=== PATIENT | male | born 1960 | race Caucasian/White ===

== ENCOUNTER 2017-08-13 16:47 | Observation (INO) | payer BC ==
[2017-08-13] MEDS ORDERED: Lidocaine 2% VISCOUS* 15 ML UDC PO ONE (18:00)
[2017-08-13] MEDS ORDERED: Al Hydrox/Mg Hydrox/Simet LIQ* 30 ML UDC PO ONE (18:00)
--- NOTE | 2017-08-13 18:49 | RAD ---
INDICATION: Chest pain. COMPARISON: Comparison is made with a prior study from March 18, 2012. TECHNIQUE: A portable view of the chest was obtained. FINDINGS: Cardiac and mediastinal contours appear to be within normal limits. The lungs are clear. No pleural effusion is seen. IMPRESSION: NO EVIDENCE FOR ACUTE DISEASE.
[2017-08-13] MEDS ORDERED: Aspirin Low Dose CHEW TAB* 81 MG PO ONE (19:10)
--- NOTE | 2017-08-13 19:35 | ED ---
HPI Chest Pain - HPI Summary HPI Summary: 56-year-old male presents with chest pain since last night. He states it is a burning in his chest. He states he has had this pain before. He states normal his symptoms resolve themselves with time but it has been constant. He states that the pain does not change with exertion. He states he still had the chest pain when he woke up this morning. He states throughout the day chest pain moved up to his neck. He states that this neck part of his chest pain has resolved. Denies any shortness of breath. He states his chest pain is better when he is lying down. Denies any change with food. He has history of GERD. He states this feels similar to his GERD pain but normal it does not persist this long. He denies any abdominal pain or nausea. Denies any diaphoresis. He denies any radiation into his arm. He had a stress test 4 months ago. He states he had a catheterization done 4 years ago had 20% blockage in one of his vessels but the doctor told him it was fine. He has a history of hypertension. He is not diabetic. He has no family cardiac history. He is a smoker. He did not take any aspirin. - History of Current Complaint Chief Complaint: EDChestPainROMI Time Seen by Provider: 08/13/17 18:55 Pain Intensity: 5 - Allergy/Home Medications Allergies/Adverse Reactions: Allergies Allergy/AdvReac Type Severity Reaction Status Date / Time No Known Allergies Allergy Verified 03/02/13 12:52 PMH/Surg Hx/FS Hx/Imm Hx Endocrine/Hematology History: Denies: Hx Diabetes, Hx Systemic Lupus Erythematosus Cardiovascular History: Reports: Hx Hypertension Denies: Hx Congestive Heart Failure Respiratory History: Reports: Other Respiratory Problems/Disorders - sleep apnia GI History: Reports: Other GI Disorders - acie reflux History: Denies: Hx Dialysis, Hx Renal Disease Musculoskeletal History: Denies: Hx Rheumatoid Arthritis - Cancer History Hx Chemotherapy: No - Surgical History Surgery Procedure, Year, and Place: lt shoulder rotator cuff- 1999, rt elbow- 1979 , rt knee-2004, [id number], rt carple tunnel Infectious Disease History: No Infectious Disease History: Denies: Traveled Outside the [place] in Last 30 Days - Family History Known Family History: Negative: Cardiac Disease - Social History Alcohol Use: None Substance Use Type: Reports: None Smoking Status (MU): Unknown if Ever Smoked Review of Systems Negative: Fever Positive: Chest Pain Negative: Shortness Of Breath, Cough All Other Systems Reviewed And Are Negative: Yes Physical Exam Triage Information Reviewed: Yes Vital Signs On Initial Exam: Initial Vitals Temp Pulse Resp BP Pulse Ox 97.9 F 57 20 192/110 99 08/13/17 16:48 08/13/17 16:48 08/13/17 16:48 08/13/17 16:48 08/13/17 16:48 Vital Signs Reviewed: Yes Appearance: Positive: Well-Appearing Skin: Positive: Warm, Dry Head/Face: Positive: Normal Head/Face Inspection Eyes: Positive: Normal, EOMI, NATAN, Conjunctiva Clear ENT: Positive: Normal ENT inspection, Pharynx normal, TMs normal Respiratory/Lung Sounds: Positive: Clear to Auscultation, Breath Sounds Present , Other - nonreproducible chest pain Cardiovascular: Positive: Normal, RRR Abdomen Description: Positive: Nontender, Soft Bowel Sounds: Positive: Present Musculoskeletal: Positive: Normal Neurological: Positive: Normal Psychiatric: Positive: Normal Diagnostics - Vital Signs Vital Signs Temp Pulse Resp BP Pulse Ox 08/13/17 16:48 97.9 F 57 20 192/110 99 - Laboratory Lab Results: Lab Results 08/13/17 08/13/17 Range/Units 18:28 18:28 Total Creatine Kinase 150 (10-223) U/L CK-MB (CK-2) 9.1 H (0.6-6.3) ng/mL B-Natriuretic Peptide 93 ( - 100) pg/mL TSH Pending Result Diagrams: 08/13/17 19:30 08/13/17 19:30 Lab Statement: Any lab studies that have been ordered have been reviewed, and results considered in the medical decision making process. - Radiology chest Xray Interpretation: No Acute Changes Radiology Interpretation Completed By: Radiologist - EKG No standard instances EKG Rhythm: Sinus Bradycardia ST Segment: Normal EKG Interpretation: sinus bradycardia similiar to previous EKG Comparison: No Significant Change Re-Evaluation - Re-Evaluation First Eval Re-Evaluation Time: 19:36 Change: Improved Comment: feeling better after GI cocktail, but chest pain is still persisting in substernal area Chest Pain Course/Dx - Course Course Of Treatment: 56-year-old male presents with sub sternal chest pain since last night. He states it is a burning in his chest. He states the pain started last night and has progressed. He states the pain started to radiate into his jaw. He denies any SOB. He denies any nausea or abdominal pain. He has HTN, obseity, smoker. no family history of cardiac disease though. on exam lungs CTA. heart RRR. nonreproducible chest pain. nontender abdomen. chest xray normal. ekg sinus bradycardia similiar to previous. troponin neg. ckmb elevated. cbc normal. gave ASA and no improvement. after GI cocktail feeling a little better but chest pain persists. dr santos examined the patient and looks at stress test and showed possible filling defect and suggests consults hospitalist. dr bush agrees to admit. - Chest Pain Differential Diagnosis/HQI/PQRI: Acute SD, Angina, Chest Wall, GI Disease - Diagnoses Provider Diagnoses: Chest pain Discharge - Discharge Plan Condition: Stable Disposition: ADMITTED TO [facility]
[2017-08-13 19:36] LABS: ABS Basophils 0.1 10^3/ul (0-0.2); ABS Eosinophils 0.1 10^3/ul (0-0.6); ABS Lymphocytes 3.6 10^3/ul (1.0-4.8); ABS Monocytes 0.7 10^3/ul (0-0.8); ABS Neutrophils 5.8 10^3/ul (1.5-7.7); ABS Nucleated RBC 0 10^3/ul; Eosinophil % 0.7 % (0-6); Hematocrit 46 % (42-52); Lymphocyte % 34.8 % (25-47); Mean Corpuscular HGB Conc 35 g/dl (31-36); Mean Corpuscular Hemoglobin 31 pg (27-31); Mean Corpuscular Volume 89 fL (80-94); Mean Platelet Volume 8 um3 (7.4-10.4); Nucleated Red Blood Cells % 0.1; Platelet Count 258 10^3/ul (150-450); Red Blood Count 5.15 10^6/ul (4.0-5.4); Red Cell Distribution Width 14 % (10.5-15); White Blood Count 10.2 10^3/ul (3.5-10.8)
[2017-08-13 19:50] LABS: Urine Appearance Clear; Urine Blood 2+ (Negative); Urine Color Straw; Urine Ketones Negative (Negative); Urine Protein Negative (Negative); Urine Specific Gravity 1.011 (1.010-1.030); Urine Urobilinogen Negative (Negative)
[2017-08-13] MEDS ORDERED: Ondansetron INJ* 2 MG/ML VIAL IV PRN (23:33)
[2017-08-13] MEDS ORDERED: Acetaminophen TAB* 325 MG PO PRN (23:33)
[2017-08-13] MEDS ORDERED: Mouth Piece, Nicotine* 1 EACH CARTRIDGE INH PRN (23:43)
[2017-08-13] MEDS ORDERED: Nicotine Inhaler* 10 MG AMP INH PRN (23:43)
[2017-08-14] MEDS ORDERED: Mouth Piece, Nicotine* 1 EACH CARTRIDGE ONE (00:27)
--- NOTE | 2017-08-14 00:59 | HP ---
CC: Dr. Smith * HISTORY AND PHYSICAL: DATE OF ADMISSION: 08/13/17 TIME OF EVALUATION: 2330. PRIMARY CARE PHYSICIAN: Dr. Smith. CHIEF COMPLAINT: Chest pain. HISTORY OF PRESENT ILLNESS: This is a 56-year-old male with a past medical history of GERD, obstructive sleep apnea and hypertension, who presented to the emergency room with having chest pain. The patient states yesterday while driving he developed substernal chest pain that resolved. 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 He did not improve while he was driving home, so he decided to come to the emergency room for further evaluation. No shortness of breath. No nausea. No diaphoresis. No changes in his weight. He stated in the last week, he is trying to eat healthier lifestyle. He has been on a diet, trying to lose weight. He has noted increase in burping and indigestion. He does not appear to be on any reflux medications. Denies any change in his weight or lower extremity swelling. He states he had a stress test back in January and on our records, it says he did not complete the full stress test. He states he did and was told that was unremarkable. He also states he had a cardiac cath several years ago that showed 20% blockages. Otherwise, review of systems is negative. In the emergency room, the patient had labs, imaging. He was given a full aspirin and Maalox and was referred to the hospitalist service for further evaluation. The patient states he still has subtle substernal chest pain. PAST MEDICAL HISTORY: 1. Hypertension. 2. GERD. 3. Obstructive sleep apnea, on CPAP. 4. Nonobstructive coronary disease. PAST SURGICAL HISTORY: 1. Rotator cuff surgery in 1999. 2. Right elbow surgery in 1979. 3. Right knee surgery in 2004. 4. Right carpal tunnel surgery. 5. History of lipoma removal. MEDICATIONS: 1. Lisinopril/hydrochlorothiazide 20/25 mg p.o. in the morning. 2. Metoprolol, unclear on the dose in the morning. 3. Cialis as needed. The patient states he is not on aspirin, but he supposed to be. 4. Vitamin D. 5. Vitamin B12. ALLERGIES: No known drug allergies. FAMILY HISTORY: No cardiac history. SOCIAL HISTORY: The patient lives at home with his who is his healthcare proxy. He is a smoker. He smokes up to 3 packs per week. No alcohol or illicit drug use. 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 CODE STATUS: Full code. REVIEW OF SYSTEMS: A 14-point review of systems as mentioned in the HPI, otherwise negative. PHYSICAL EXAMINATION GENERAL: No acute distress, resting comfortably. VITAL SIGNS: Temp is 97.9, pulse rate is 58, respiratory rate 21, oxygen saturation 96% on room air, blood pressure 156/80. HEENT: Head: Normocephalic. Pupils are equal and reactive, anicteric. Oropharynx: Mucous membranes moist. NECK: Supple. No lymphadenopathy. RESPIRATORY: Diminished breath sounds. Faint rhonchi bilaterally. No increased work of breathing. CARDIAC: Regular rate and rhythm. Soft systolic murmur heard throughout. ABDOMEN: Soft, nontender, nondistended. EXTREMITIES: No clubbing, cyanosis, or edema. +1 DPs. NEUROLOGIC: Alert, awake, and oriented x3. No focal neurologic deficits. LABORATORY DATA: White count 10.2, hemoglobin 16, hematocrit 46, platelets 258. Sodium 137, potassium 3.9, chloride 103, bicarb 29, BUN 18, creatinine 0.69 , glucose 102. Troponin is 0.01 x2. BNP is 93. TSH is 2.79. RADIOGRAPHIC DATA: Chest x-ray shows no evidence for acute disease. EKG shows sinus bradycardia with a prolonged NJ interval. ASSESSMENT: This is a 56-year-old male with a past medical history of gastroesophageal reflux disease, obstructive sleep apnea, hypertension, who presents to the emergency room with 2 days of worsening chest pain. 1. Chest pain. Assessment: Seems to be slightly exertional in nature, although initially started nonexertional, increase in indigestion, but has been eating healthier and could be gastroesophageal reflux disease related. It does not appear that he is on his gastroesophageal reflux disease medications, although he is not sure of his entire medication list. Could be musculoskeletal as he does a lot of heavy lifting as well, but he does have some risk factors, not unreasonable to admit him for rule out. He did have a stress test back in January, but it does not appear that he did the second portion of the test and then there was a question of a filling defect. Plan: We will admit him to observation CDU unit for rule out trend his troponin , check a lipid panel. Continue him on a baby aspirin and I order for a nuclear stress test in the morning. 2. Chronic medical problems: Hypertension: Continue his lisinopril and we will do a low-dose metoprolol as he is not sure of his dose. Hold his hydrochlorothiazide in the setting of being n.p.o. 3. Gastroesophageal reflux disease. The patient is not on any medications. We will place him on H2 rajwinder for now. 4. Tobacco use. Place him on nicotine inhaler. 5. Obstructive sleep apnea. We will place him on a CPAP. 6. FEN. Keep him n.p.o. 7. DVT prophylaxis. The patient scores moderate risk. Place him on heparin subcu t.i.d. 8. Code status. Full code. PATIENT TIME: Greater than 50 minutes spent doing the history and physical, more than half the time spent in direct patient contact. [id number]/[facility] #: [id number] VITALIY
[2017-08-14] MEDS: Al Hydrox/Mg Hydrox/Simet LIQ* 30 ML UDC PO PRN ×2 (02:09→20:46)
[2017-08-14] MEDS: Heparin VIAL(*) 5000 UNITS/ML VIAL (FIVE THOUSAND) SUBCUT SCH ×3 (06:00→22:12)
--- NOTE | 2017-08-14 08:18 | PN ---
Hospitalist Progress Note Date of Service: 08/14/17 Called by RN for chest pain. I evaluated Mr. Brito; he developed substernal chest pain after he walked back to his bed from the bathroom. A stat ekg is unchanged (nsr, normal axis, normal intervals, no st/t changes), but he has a significant BP differential between his arms. Check stat CTA to rule out dissection. If negative, will proceed with stress test.
[2017-08-14] MEDS: Aspirin EC Low Dose* 81 MG TAB.EC PO SCH (08:26)
[2017-08-14] MEDS: Metoprolol Succinate XL TAB* 25 MG PO SCH (08:29)
[2017-08-14] MEDS: Famotidine TAB* 20 MG PO SCH (08:29)
[2017-08-14] MEDS: Lisinopril TAB* 10 MG PO SCH (08:29)
[2017-08-14] MEDS: Acyclovir* 400 MG TAB PO SCH ×2 (08:29→20:44)
[2017-08-14] MEDS ORDERED: Iohexol 350* (CONTRAST) 500 ML MDV IV SCH (08:33)
--- NOTE | 2017-08-14 10:02 | RAD ---
INDICATION: Hypertension. Evaluate for aortic dissection. COMPARISON: Chest x-ray same date; CT chest March 02, 2013 TECHNIQUE: Axial source images were obtained from the thoracic inlet to the hemidiaphragms following administration of [address] angiographic technique was utilized. Coronal and sagittal reconstructed images were acquired. CHEST FINDINGS: Neck/thyroid: The visualized neck to include the thyroid appear normal. Chest wall: There are no acute abnormalities of the bony thorax or chest wall. There is no supraclavicular, infraclavicular, or axillary lymphadenopathy. Lungs : There are no pulmonary parenchymal masses or infiltrates. The pulmonary interstitium appears normal. There are no endobronchial lesions. Cardiomediastinal structures: There is no CT evidence of acute pulmonary embolic disease. The heart is normal in size. There is no pericardial effusion. There is no evidence of aortic aneurysm or dissection. There are no specific CT and radiographic abnormalities of the proximal great vessels arising from the arch. There is no mediastinal or hilar adenopathy. The esophagus appears normal. Pleura : There are no pleural-based masses or effusions. There is subpleural fat appearing unchanged. Other: There is hepatomegaly with hepatic steatosis. IMPRESSION: NO CT EVIDENCE OF THORACIC AORTIC ANEURYSM OR DISSECTION. LUNGS CLEAR.
--- NOTE | 2017-08-14 17:13 | PN ---
Subjective Date of Service: 08/14/17 Interval History: Experienced chest pain again this morning after walking to the bathroom. Resolved at rest. An ekg at that time showed no ischemia. No SOB, nausea, diaphoresis, +palpitations. Family History: Unchanged from Admission Social History: Unchanged from Admission Past Medical History: Unchanged from Admission Objective Active Medications: Acetaminophen (Tylenol Tab*) 650 mg PO Q4H PRN PRN Reason: FEVER/PAIN Acyclovir (Zovirax Tab*) 800 mg PO Q12HR [facility] Last Admin: 08/14/17 08:29 Dose: 800 mg Al Hydrox/Mg Hydrox/Simethicone (Maalox Plus*) 30 ml PO Q6H PRN PRN Reason: INDIGESTION Last Admin: 08/14/17 02:09 Dose: 30 ml Aspirin (Aspirin Ec Low Dose*) 81 mg PO DAILY [facility] Last Admin: 08/14/17 08:26 Dose: Not Given Device (Nicotine Mouth Piece*) 1 each INH ONCE ONE Stop: 08/14/17 23:44 Famotidine (Pepcid Tab*) 20 mg PO DAILY [facility] Last Admin: 08/14/17 08:29 Dose: 20 mg Heparin Sodium (Porcine) (Heparin Vial(*)) 5,000 units SUBCUT Q8HR [facility] Last Admin: 08/14/17 14:21 Dose: 5,000 units Iohexol (Omnipaque 350 (Contrast)-) 100 ml IV ONCE [facility] Stop: 08/16/17 08:32 Last Admin: 08/14/17 09:13 Dose: 100 ml Lisinopril (Prinivil Tab*) 20 mg PO DAILY [facility] Last Admin: 08/14/17 08:29 Dose: 20 mg Metoprolol Succinate (Toprol Xl Tab*) 25 mg PO DAILY [facility] Last Admin: 08/14/17 08:29 Dose: 25 mg Nicotine (Nicotine Inhaler*) 10 mg INH Q2H PRN PRN Reason: CRAVING Ondansetron HCl (Zofran Inj*) 4 mg IV Q4H PRN PRN Reason: NAUSEA/VOMITING Vital Signs - 8 hr 08/14/17 08/14/17 10:54 15:26 Temperature 97.8 F 97.2 F Pulse Rate 60 65 Respiratory 20 18 Rate Blood Pressure 164/90 149/77 (mmHg) O2 Sat by Pulse 96 97 Oximetry Oxygen Devices in Use Now: None Appearance: obese, with facial plethora Eyes: No Scleral Icterus Ears/Nose/Mouth/Throat: NL Teeth, Lips, Gums Neck: NL Appearance and Movements; NL JVP Respiratory: Symmetrical Chest Expansion and Respiratory Effort, Clear to Auscultation Cardiovascular: NL Sounds; No Murmurs; No JVD, RRR Abdominal: NL Sounds; No Tenderness; No Distention Lymphatic: No Cervical Adenopathy Extremities: No Edema Skin: No Rash or Ulcers Result Diagrams: 08/13/17 19:30 08/13/17 19:30 Additional Lab and Data: Lab Results 08/13/17 08/13/17 Range/Units 18:28 18:28 Total Creatine Kinase 150 (10-223) U/L CK-MB (CK-2) 9.1 H (0.6-6.3) ng/mL B-Natriuretic Peptide 93 ( - 100) pg/mL TSH Pending Assess/Plan/Problems-Billing Assessment: 56 yo M with history of HTN admitted with chest pain - Patient Problems (1) Chest pain Current Visit: Yes Status: Acute Code(s): R07.9 - CHEST PAIN, UNSPECIFIED SNOMED Code(s): 93892829 Comment: with some typical and some atypical features. ACS ruled out with 3x normal troponin and normal ekg. 1st portion of stress test done today; will await second portion tomorrow. (2) HTN (hypertension) Current Visit: Yes Status: Acute Code(s): I10 - ESSENTIAL (PRIMARY) HYPERTENSION SNOMED Code(s): 13690085 Comment: poorly controlled on lisinopril and metoprolol; will add back hctz (3) MATEO (obstructive sleep apnea) Current Visit: Yes Status: Acute Code(s): G47.33 - OBSTRUCTIVE SLEEP APNEA ( ADULT) (PEDIATRIC) SNOMED Code(s): 49078557 Comment: continue cpap at night
[2017-08-14] MEDS ORDERED: Mouth Piece, Nicotine* 1 EACH CARTRIDGE INH ONE (23:43)
[2017-08-15] MEDS: Heparin VIAL(*) 5000 UNITS/ML VIAL (FIVE THOUSAND) SUBCUT SCH (05:21)
[2017-08-15] MEDS ORDERED: Hydrochlorothiazide TAB* 25 MG PO SCH (09:00)
[2017-08-15] MEDS ORDERED: Regadenoson* 0.4 MG/5 ML SYRINGE ONE (10:42)
[2017-08-15 11:59] VITALS: BP 146/84
--- NOTE | 2017-08-15 12:36 | RAD ---
HISTORY: Chest pain, hypertension, obesity COMPARISONS: January 29, 2017, February 15, 2011 TECHNIQUE: A 2 day stress/rest myocardial perfusion study was performed, with pharmacologic stress. The stress portion was monitored by Dr. Leslie. Gated SPECT imaging was performed, without CT-based attenuation correction secondary to patient claustrophobia DOSE: Stress: Technetium 99m tetrofosmin, 25.7 millicuries, injected at 10:10 AM on August 15, 2017 Rest: Technetium 99m tetrofosmin, 25.2 millicuries, injected at 12:30 PM on August 14, 2017 Pharmacologic agent: Lexiscan FINDINGS: CARDIAC MONITORING: No new ST changes with stress EF: 67%, 61% with rest TID: 0.4 MOTION: Normal motion, with normal wall thickening. PERFUSION: There is a small reversible defect of the anterior wall. The inferior wall defect on the polar map is felt to be artifactual. OTHER: None IMPRESSION: SMALL REVERSIBLE DEFECT IN THE ANTERIOR WALL CONSISTENT WITH ISCHEMIA. ASSESSMENT: LOW RISK. Based on imaging criteria from ACC/AHA 2002. Guideline Update for the Management of Patient's with Chronic Stable Angina, table 23. Noninvasive Risk Stratification. CPT II Codes: 3570F
[2017-08-15] MEDS: Acyclovir* 400 MG TAB PO SCH (12:51)
[2017-08-15] MEDS: Aspirin EC Low Dose* 81 MG TAB.EC PO SCH (12:51)
[2017-08-15] MEDS: Famotidine TAB* 20 MG PO SCH (12:52)
[2017-08-15] MEDS: Metoprolol Succinate XL TAB* 25 MG PO SCH (12:52)
[2017-08-15] MEDS: Lisinopril TAB* 10 MG PO SCH (12:52)
== END 2017-08-15 14:58 | disposition home or self-care (01) ==
LOC: ED 16:47 → MEDTELE 23:33
PROVIDERS: ADMIT Pediatrics; ATTEND Internal Medicine
DX: R07.9 Chest pain, unspecified (principal); F17.210 Nicotine dependence, cigarettes, uncomplicated; Z86.79 Personal history of other diseases of the circulatory system; I10 Essential (primary) hypertension; K21.9 Gastro-esophageal reflux disease without esophagitis; G47.33 Obstructive sleep apnea (adult) (pediatric)
CPT/HCPCS: 36415; 71045; 71275; 78452; 80053; 80061; 81003; 81015; 82550; 82553; 83605; 83880; 84443; 84484; 85025; 85730; 93005; 93017; 94660; 96374; 99284; A9270-GY; A9502; G0378; J1644; J2785; Q9967

== ENCOUNTER 2018-07-22 13:44 | Observation (INO) | payer BC ==
[2018-07-22] MEDS ORDERED: Lidocaine 2% VISCOUS* 15 ML UDC PO ONE (14:14)
[2018-07-22] MEDS ORDERED: Al Hydrox/Mg Hydrox/Simet LIQ* 30 ML UDC PO ONE (14:14)
--- NOTE | 2018-07-22 14:32 | ED ---
HPI Chest Pain - HPI Summary HPI Summary: This pt is a 57 y/o male presenting to [facility] via EMS for intermittent chest pain today. Pt reports his first episode of chest pain occurred after he had ambulated. He describes burning sensation in his mid sternum that radiated down both elbows and up to his left sided jaw. Pt states this felt like heart burn as he does have hx of this. Denies feeling sour taste in her mouth. Pt notes he sat down, drank water and then it spontaneously resolved. Pt ate a roast beef sandwich after this first episode. He then was going to his appointment with Dr. Leslie, ornament stitcher, today and as he walked into the elevator pt experienced a second episode of chest pain. Currently chest pain has resolved. Denies fever, SOB, nausea, vomiting, headache. His last stress test was in February [address] Leslie. PMHx includes GERD. Pt did take his medications today. - History of Current Complaint Hx Obtained From: Patient Onset/Duration: Started Hours Ago, Resolved Timing: Intermittent, Lasting Minutes Initial Severity: Moderate Current Severity: None Pain Intensity: 0 Pain Scale Used: 0-10 Numeric Chest Pain Location: Mid Sternal Chest Pain Radiates: Yes Chest Pain Radiates To:: Arm - down both arms, Jaw - left Character: Burning Aggravating Factor(s): Nothing Alleviating Factor(s): Spontaneous Resolution Associated Signs and Symptoms: Positive: Chest Pain. Negative: Shortness of Breath, Fever, Chills, Nausea, Vomiting Related History: Similar Episode/Dx as: - heart burn - Additional Pertinent History Primary Care Physician: [id number] - Allergy/Home Medications Allergies/Adverse Reactions: Allergies Allergy/AdvReac Type Severity Reaction Status Date / Time No Known Allergies Allergy Verified 07/22/18 14:16 Home Medications: Home Medications Aspirin EC TAB* [Ecotrin EC Low Dose 81 MG*] 81 mg PO DAILY 07/22/18 [History Confirmed 07/22/18] Esomeprazole(NF) [NexIUM(NF)] 40 mg PO BID 07/22/18 [History Confirmed 07/22/18] Lisinopril/HCTZ 20/25(NF) [Zestoretic 20/25(NF)] 1 tab PO BID 07/22/18 [History Confirmed 07/22/18] Metoprolol Tartrate TAB* [Lopressor TAB*] 50 mg PO BID 07/22/18 [History Confirmed 07/22/18] PMH/Surg Hx/FS Hx/Imm Hx Endocrine/Hematology History: Denies: Hx Diabetes, Hx Systemic Lupus Erythematosus Cardiovascular History: Reports: Hx Angina, Hx Coronary Artery Disease, Hx Hypertension Denies: Hx Congestive Heart Failure, Hx Hypercholesterolemia, Hx Myocardial Infarction, Hx Valvular Heart Disease Respiratory History: Reports: Hx Sleep Apnea - CPAP, Other Respiratory Problems/ Disorders - sleep apnia Denies: Hx Asthma, Hx Chronic Obstructive Pulmonary Disease (COPD) GI History: Reports: Hx Gastroesophageal Reflux Disease, Other GI Disorders - acie reflux History: Denies: Hx Dialysis, Hx Renal Disease Musculoskeletal History: Reports: Other Musculoskeletal History - many surgeries Denies: Hx Rheumatoid Arthritis Sensory History: Reports: Hx Hearing Aid - left at home Denies: Hx Contacts or Glasses Opthamlomology History: Denies: Hx Contacts or Glasses - Cancer History Hx Chemotherapy: No - Surgical History Surgery Procedure, Year, and Place: lt shoulder rotator cuff- 1999, rt elbow- 1979 , rt knee-2004, left knee, spinal [id number], rt carpal tunnel Infectious Disease History: No Infectious Disease History: Reports: Hx Shingles Denies: History Other Infectious Disease, Traveled Outside the [place] in Last 30 Days - Family History Known Family History: Negative: Cardiac Disease - Social History Alcohol Use: Weekly Alcohol Amount: 2 glasses whiskey Substance Use Type: Reports: None Smoking Status (MU): Light Every Day Tobacco Smoker Type: Cigarettes Amount Used/How Often: 3 packs per week down about 2 pack a week Have You Smoked in the Last Year: Yes Review of Systems Negative: Fever, Chills Negative: Other - NEG: sour taste in mouth Positive: Chest Pain Negative: Shortness Of Breath Negative: Vomiting, Nausea Negative: Headache All Other Systems Reviewed And Are Negative: Yes Physical Exam - Summary Physical Exam Summary: VITAL SIGNS: Reviewed. GENERAL: Patient is a well-developed and nourished male who is lying comfortable in the stretcher. Patient is not in any acute respiratory distress. HEAD AND FACE: No signs of trauma. No ecchymosis, hematomas or skull depressions. No sinus tenderness. EYES: PERRLA, EOMI x 2, No injected conjunctiva, no nystagmus. EARS: Hearing grossly intact. Ear canals and tympanic membranes are within normal limits. MOUTH: Oropharynx within normal limits. NECK: Supple, trachea is midline, no adenopathy, no JVD, no carotid bruit, no c- spine tenderness, neck with full ROM. CHEST: Symmetric, no tenderness at palpation LUNGS: Clear to auscultation bilaterally. No wheezing or crackles. CVS: Regular rate and rhythm, S1 and S2 present, no murmurs or gallops appreciated. ABDOMEN: Soft, non-tender. No signs of distention. No rebound, no guarding, and no masses palpated. Bowel sounds are normal. EXTREMITIES: FROM in all major joints, no edema, no cyanosis or clubbing. NEURO: Alert and oriented x 3. No acute neurological deficits. Speech is normal and follows commands. SKIN: Dry and warm Triage Information Reviewed: Yes Vital Signs On Initial Exam: Initial Vitals Temp Pulse Resp BP Pulse Ox 97.7 F 89 17 139/106 93 07/22/18 14:09 07/22/18 14:09 07/22/18 14:09 07/22/18 14:09 07/22/18 14:09 Vital Signs Reviewed: Yes Diagnostics - Vital Signs Vital Signs Temp Pulse Resp BP Pulse Ox 07/22/18 14:09 97.7 F 89 17 139/106 93 - Laboratory Result Diagrams: 07/22/18 13:29 07/22/18 20:10 Lab Statement: Any lab studies that have been ordered have been reviewed, and results considered in the medical decision making process. - Radiology Chest XR Radiology Interpretation Completed By: Radiologist Summary of Radiographic Findings: IMPRESSION: No active cardiopulmonary disease is noted. Dr. Ribera has reviewed this report. - EKG 14:20 Cardiac Rate: NL - at 86 bpm EKG Rhythm: Sinus Rhythm Summary of EKG Findings: No ST elevations Chest Pain Course/Dx - Course Assessment/Plan: This pt is a 57 y/o male presenting to [facility] via EMS for intermittent chest pain today. Pt reports his first episode of chest pain occurred after he had ambulated. He describes burning sensation in his mid sternum that radiates down both elbows and up to his left sided jaw. Pt states this felt like heart burn as he does have hx of this. Denies feeling sour taste in her mouth. Pt notes he sat down, drank water and then it spontaneously resolved. Pt ate a roast beef sandwich after this first episode. He then was going to his appointment with Dr. Leslie, ornament stitcher, today and as he walked into the elevator pt experienced a second episode of chest pain. Currently chest pain has resolved. Denies fever, SOB, nausea, vomiting, headache. His last stress test was in February [address] Leslie. PMHx includes GERD. Pt did take his medications today. Blood work without any significant abnormality except of sodium 125, glucose of 840, lactic acid is 2.1 , troponin 0.01. Urinalysis is negative for UTI. In the ED course initially he was given a GI cocktail since the patient reported that he had burning pain. After, we noticed that the patient had increased sugar and possibly has a new onset of diabetes and is likely in a hyperglycemic hyperosmolar state. Therefore the patient was placed on IV fluids and the patient was placed in an insulin drip. I discussed the case with Dr. Ward, hospitalist, who accepted the patient for admission. The patient is hemodynamically stable, alert and oriented 3. - Chest Pain Differential Diagnosis/HQI/PQRI: Acute ID, ACS, Angina, CHF, Chest Wall, GI Disease, Lower Respiratory Infection - Diagnoses Provider Diagnoses: Hyperglycemic crisis in diabetes mellitus, Chest pain, GERD (gastroesophageal reflux disease) - Provider Notifications Discussed Care Of Patient With: Brittani Ward - hospitalist Time Discussed With Above Provider: 15:47 Instructed by Provider To: Admit As Inpatient Discharge - Sign-Out/Discharge Documenting (check all that apply): Patient Departure - Admit to [facility] [place] - Discharge Plan Condition: Stable Disposition: ADMITTED TO [facility] - Billing Disposition and Condition Condition: STABLE Disposition: Admitted to [facility] - Attestation Statements Document Initiated by Pardeep: Yes Documenting Scribe: Emerita Santos Provider For Whom Pardeep is Documenting (Include Credential): Magdiel Ribera MD Scribe Attestation: Emerita Self scribed for Magdiel Ribera MD on 07/22/18 at 2108. Scribe Documentation Reviewed: Yes Provider Attestation: The documentation as recorded by the Emerita pedraza accurately reflects the service I personally performed and the decisions made by me, Magdiel Ribera MD Status of Scribe Document: Viewed
[2018-07-22 14:33] LABS: ABS Basophils 0.1 10^3/ul (0-0.2); ABS Eosinophils 0 10^3/ul (0-0.6); ABS Lymphocytes 1.5 10^3/ul (1.0-4.8); ABS Monocytes 0.7 10^3/ul (0-0.8); ABS Neutrophils 5.5 10^3/ul (1.5-7.7); ABS Nucleated RBC 0 10^3/ul; Eosinophil % 0.4 %; Hematocrit 50 % (42-52); Hemoglobin 17.6 g/dl (14.0-18.0); Lymphocyte % 19.5 %; Mean Corpuscular HGB Conc 35 g/dl (31-36); Mean Corpuscular Hemoglobin 32 pg (27-31); Mean Corpuscular Volume 89 fL (80-94); Mean Platelet Volume 8.8 fL (7.4-10.4); Nucleated Red Blood Cells % 0.1; Platelet Count 233 10^3/ul (150-450); Red Blood Count 5.59 10^6/ul (4.00-5.40); Red Cell Distribution Width 13 % (10.5-15); White Blood Count 7.8 10^3/ul (3.5-10.8)
[2018-07-22 14:56] LABS: ALT 42 U/L (7-52); Albumin 4.4 g/dL (3.2-5.2); Albumin/Globulin Ratio 1.7 (1-3); Alkaline Phosphatase 111 U/L (34-104); BUN/Creatinine Ratio 18.8 (8-20); Blood Urea Nitrogen 22 mg/dL (6-24); CO2 Carbon Dioxide 26 mmol/L (22-32); Calcium 9.8 mg/dL (8.6-10.3); Chloride 88 mmol/L (101-111); Creatine Kinase 185 U/L (10-223); EGFR Non-African American 64.5 (>60); Globulin 2.6 g/dL (2-4); Sodium 125 mmol/L (135-145)
[2018-07-22 15:02] LABS: Anion Gap 11 mmol/L (2-11)
[2018-07-22 15:22] LABS: Urine Appearance Clear; Urine Bilirubin Negative (Negative); Urine Blood Negative (Negative); Urine Color Straw; Urine Glucose 3+(>=500 mg/dL) (Negative); Urine Ketones Negative (Negative); Urine Nitrite Negative (Negative); Urine Protein Negative (Negative); Urine Specific Gravity 1.026 (1.010-1.030); Urine Urobilinogen Negative (Negative)
[2018-07-22 15:22] LABS: TSH (Thyroid Stimulating Horm) 1.25 mcIU/mL (0.34-5.60)
[2018-07-22 15:25] LABS: Activated Partial Thrombo Time 28.1 seconds (26.0-36.3); INR 0.91 (0.77-1.02)
[2018-07-22 15:36] LABS: Glucose 840 mg/dL (70-100)
[2018-07-22] MEDS ORDERED: NS 0.9% 1000 ML* 2,000 ML IV ONE (15:36)
[2018-07-22] MEDS ORDERED: Insulin REGULAR(*) 1 UNITS UNIT IV PUSH ONE (15:36)
--- OUTSIDE RECORDS SUMMARY | 2018-07-22 15:50 | XMS REPORT | Continuity of Care Document ---
:1960 External Reference #:[id number] Author Name Iris Phillips PA-C Address [address] [place] [address] [place] [address] Care Team Providers Name Role Phone Andry Smith MD Care Team Information Company [employer] Unavailable Andry Smith MD Primary Care Physician Unavailable Payers Type Date Identification Numbers Payment Provider Subscriber Policy Number: [id number] [employer]ha Brito PayID: [id number] [address] [address] [place] [address] Advance Directives Description No Information Available Problems Date Description Provider Status Onset: 07/17/2018 History of polyp of colon Iris Phillips PA-C Active Onset: 07/17/2018 Gastroesophageal reflux disease Iris Phillips PA-C Active Onset: 07/17/2018 Epigastric pain Iris Phillips PA-C Active Family History Description No Information Available Social History Type Date Description Comments Sex Unknown ETOH Use Denies alcohol use Tobacco Use Start: Unknown Light tobacco smoker (10 or fewer cigarettes/day) Recreational Drug Use Denies Drug Use Smoking Status Reviewed: 07/17/18 Light tobacco smoker (10 or fewer cigarettes/day) Allergies, Adverse Reactions, Alerts Description No Known Drug Allergies Medications Medication Date Status Form Strength Qnty SIG Indications Ordering Provider Cialis Active Tablets 20mg Unknown 000 Lisinopril-Hydr Active Tablets 20-25mg Niziol,Jonathan ochlorothiazide 000 MD wesly Esomeprazole Active Capsules DR 40mg Unknown Magnesium 000 Metoprolol Active Tablets 50mg Gustabo,Aar Tartrate 000 MD betito Aspir-[address] 81mg 1 by Unknown 000 mouth every day Nexium Hx Capsules DR 40mg Unknown 000 - 019 Sucralfate Hx Tablets 1gm Unknown - 019 Meloxicam Hx Tablets 15mg Unknown - 016 Hydrocodone-Edwin Hx Tablets 5-325mg Unknown taminophen - 016 Lisinopril-Hydr Hx Tablets 20-25mg Unknown ochlorothiazide - 019 Ventolin HFA Hx Aerosol 108(90Base inhale 2 Unknown 000 - ) mcg/Act puffs by mouth 016 four times a day Prednisone Hx Tablets 10mg Take 4 Unknown 000 - Tabs Once A 016 Day For 2 Days, 3 For 2 Days, 2 For 2 Days Then One Levofloxacin Hx Tablets 500mg Unknown - 016 Famotidine Hx Tablets 40mg Unknown - 016 Metoprolol Hx Tablets 50mg Unknown Tartrate - 016 Viagra Hx Tablets 100mg Unknown - 016 Immunizations Description No Information Available Vital Signs Date Vital Result Comment 07/17/2018 9:51am Height 72 inches 6'0" Weight 292.00 lb BP Systolic 160 mmHg BP Diastolic 89 mmHg Heart Rate 78 /min BMI (Body Mass Index) 39.6 kg/m2 04/22/2018 10:21am Height 72 inches 6'0" Weight 300.00 lb BMI (Body Mass Index) 40.7 kg/m2 10/10/2015 2:41pm Height 71.5 inches 5'11.50" Weight 285.00 lb BP Systolic 146 mmHg BP Diastolic 78 mmHg Heart Rate 78 /min BMI (Body Mass Index) 39.2 kg/m2 01/19/2014 3:26pm Height 71.5 inches 5'11.50" Weight 292.00 lb BP Systolic 132 mmHg BP Diastolic 76 mmHg Heart Rate 68 /min BMI (Body Mass Index) 40.2 kg/m2 Results Test Date Facility Test Result H/L Range Note Xray 04/24/2018 [facility] [place] Radiology CT Chest W <pending> Xray 08/14/2017 [facility] [place] Radiology Cta Chest <pending> Xray 08/14/2017 [facility] [place] Radiology Myocardial Multi <pending> Resting Fluid Lipid 08/13/2017 [facility] Fluid Cholesterol <pending> Profile Laboratory test 08/13/2017 [facility] Troponin I <pending> finding Laboratory test 08/13/2017 [facility] Troponin I <pending> finding CMP(!) 08/13/2017 [facility] Sodium(!) <pending> Potassium(!) <pending> Chloride Serum/Plasma(!) <pending> Carbon Dioxide Ser/Plasm(!) <pending> BUN - Urea Nitrogen(!) <pending> Calcium Ser/Plasma Mass/Vol(!) <pending> Creatinine Serum Mass/Vol(!) <pending> Glucose Serum(!) <pending> BUN/Creatinine Ratio(!) <pending> Albumin Serum/Plasma(!) <pending> Alkaline Phosphatase(!) <pending> Bilirubin Total Mass/Vol(!) <pending> Ast - Sgot <pending> Alt - SGPT <pending> Protein Total <pending> Laboratory test 08/13/2017 [facility] Troponin I <pending> finding CBC W/Auto 08/13/2017 [facility] White Blood Count <pending> Differential(!) Ser Auto CNT RBC Red Blood Count <pending> Hemoglobin Blood <pending> Hematocrit <pending> MCV (Corpuscular Volume) <pending> MCH (Corpuscular Hemoglobin) <pending> MCHC (Corpuscular Hemog Conc) <pending> RDW <pending> Platelet Count Blood Auto CNT <pending> MPV <pending> Lymph% <pending> [place]% <pending> Neutrophil % <pending> Absolute Lymphocytes <pending> Absolute Monocytes <pending> Absolute Neutrophils <pending> Laboratory test 08/13/2017 [facility] Lactic Acid Ser/Plas <pending> finding Mass/Vol Xray 08/13/2017 [facility] [place] Radiology Chest Ap Portable <pending> Xray 09/22/2015 [facility] [place] Radiology US, Gallbladder <pending> (81015) CBC No Diff 09/22/2015 [facility] Hematocrit <pending> Hemoglobin Blood <pending> Platelet Count Blood Auto CNT <pending> RBC Red Blood Count <pending> RDW <pending> White Blood Count Ser Auto CNT <pending> MCH (Corpuscular Hemoglobin) <pending> MCHC (Corpuscular Hemog Conc) <pending> MPV <pending> MCV (Corpuscular Volume) <pending> Amylase & Lipase 09/22/2015 [facility] Amylase(!) <pending> Lipase Ser/Plas (!) <pending> BMP W/O Egfr(!) 09/22/2015 [facility] Sodium(!) <pending> Potassium(!) <pending> Chloride Serum/Plasma(!) <pending> Carbon Dioxide Ser/Plasm(!) <pending> BUN - Urea Nitrogen(!) <pending> Calcium Ser/Plasma Mass/Vol(!) <pending> Creatinine Serum Mass/Vol(!) <pending> Glucose Serum(!) <pending> H Pylori Ag 09/22/2015 [facility] Misc Test - Put Test <pending> In Order Gliadin Igg/Iga AB 09/22/2015 [facility] Gliadin Iga <pending> Gliadin Igg <pending> Transglutaminase 09/22/2015 [facility] Transglutaminase AB <pending> Iga/Igg Iga Transglutaminase AB Igg <pending> Celiac Panel! 09/22/2015 [facility] Endomysial AB QN Serum <pending> Clotest 01/21/2014 [facility] [place] Clotest (SEE NOTE) Xray 12/29/[address] [facility] [address] Abdomen/Pelvis W/ <pending> Xray 12/17/2013 [facility] [place] Radiology US Gall Bladder <pending> Procedures Date Code Description Status 01/21/2014 12341 EGD+Biopsy Single Or Multiple Completed Encounters Type Date Location Provider Dx Diagnosis Office Visit 10/10/2015 [facility], K[facility] Functional 2:[facility] dyspepsia R10.84 Generalized abdominal pain K21.9 Gastro-esophageal reflux disease without esophagitis Office Visit 01/19/2014 [facility] 530.81 Esophageal 3:[facility] M.D. Reflux 536.8 Stomach Dyspepsia & Other Spec Disorders Of Function Plan of Treatment Future Appointment(s):07/31/2018 12:00 pm - Kleber Ruiz MD at [facility] Eekqad9907/17/2018 - ILNDEN Zheng-CR10.13 Epigastric painK21.9 Gastro-esophageal reflux disease without [id number] Personal history of colonic polyps
[2018-07-22] MEDS: Insulin IVPB 100 units/100 ml 100 UNITS/100 ML UNIT IVPB ONE (16:18)
[2018-07-22] MEDS ORDERED: Acetaminophen TAB* 325 MG PO PRN (18:20)
[2018-07-22] MEDS ORDERED: NS 0.9% 1000 ML* 1,000 ML IV SCH (18:45)
[2018-07-22] MEDS ORDERED: Enoxaparin(*) 40 MG/0.4 ML SYR SUBCUT SCH (19:00)
[2018-07-22 19:26] LABS: Glucose 320 mg/dL (70-100)
[2018-07-22 19:47] LABS: Triglycerides 1917 mg/dL
[2018-07-22 20:40] LABS: BUN/Creatinine Ratio 25.5 (8-20); Blood Urea Nitrogen 14 mg/dL (6-24); CO2 Carbon Dioxide 24 mmol/L (22-32); Calcium 6.7 mg/dL (8.6-10.3); Chloride 108 mmol/L (101-111); EGFR Non-African American 154.1 (>60); Glucose 211 mg/dL (70-100); Sodium 136 mmol/L (135-145)
[2018-07-22 20:45] LABS: Anion Gap 4 mmol/L (2-11)
[2018-07-22 21:05] LABS: Potassium 3.3 mmol/L (3.5-5.0)
[2018-07-22 21:25] LABS: Amylase < 10 U/L (29-103)
[2018-07-22] MEDS: D5W 1/2 NS KCl 20 Meq 1000 ML* 1,000 ML IV SCH (21:30)
[2018-07-22 21:52] LABS: Glucose 527 mg/dL (70-100)
[2018-07-22] MEDS: Metoprolol Tartrate TAB* 50 mg PO SCH (22:09)
[2018-07-22] MEDS: Enoxaparin(*) 40 MG/0.4 ML SYR SUBCUT SCH (22:10)
[2018-07-22] MEDS ORDERED: KCL 20 MEQ/100 ML IVPREMIX* 20 MEQ/100 ML BAG IV ONE (22:43)
[2018-07-23 01:03] LABS: BUN/Creatinine Ratio 22.5 (8-20); Calcium 8.4 mg/dL (8.6-10.3); EGFR Non-African American 114.8 (>60); Potassium 3.4 mmol/L (3.5-5.0)
--- NOTE | 2018-07-23 01:15 | HP ---
CC: Dr. Smith * HISTORY AND PHYSICAL: DATE OF ADMISSION: 07/22/18 PROVIDER: Janet Melara NP. PRIMARY CARE PROVIDER: Dr. Smith. ATTENDING PHYSICIAN WHILE IN THE HOSPITAL: Dr. Ewing.* (DICTATED BY JANET MELARA NP) CHIEF COMPLAINT: Chest pain. HISTORY OF PRESENT ILLNESS: Mr. Brito is a 57-year-old gentleman with a past medical history significant for GERD, hypertension, obstructive sleep apnea with CPAP nightly, who follows with Dr. Leslie. The patient presented to the emergency room with complaints of chest pain today. 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 He states that he had walked through approximately 5 warehouses and developed chest pain while walking. He also had some diaphoresis and nausea associated with the chest pain, so he sat down. He reports that the chest pain subsided approximately after 5 minutes of rest. He does report that the pain radiated up into his neck. The patient reports that he had a negative stress test in February of this year and denies any recent illnesses other than a viral cold prior to . The patient reports that over approximately 10 days ago he started drinking juice on a daily basis, approximately a gallon and a half daily. He does report that today he has had 14 ounces of apple juice, 35 ounces of peach and apple, and 14 ounces of orange juice prior to arrival to the hospital. Patient also reports that he has had increased thirst and increased urination since . Mouth has felt dry. He denies any history of diabetes or any other associated symptoms. He denies any fever or unintended weight loss. Denies chest pain or edema. Denies cough , hemoptysis, or shortness of breath. He did report some nausea. Denies any diarrhea. He did have some lower abdominal pain. Denies any gross hematuria or dysuria. He does report frequency and large amounts of urination. Denies any weakness or sensory loss. Patient does report that his balance was off for approximately 2 weeks and has had blurred vision. Denies any dysphagia, arthralgias, myalgias. He does complain of rashes to bilateral feet. Denies psychosocial anxiety. The patient presented to the emergency room. He had routine lab work drawn. His troponins were negative. He was found to have a glucose of 840. Due to his hypoglycemia and chest pain, we were asked to see and evaluate him for admission. PAST MEDICAL HISTORY: 1. GERD. 2. Hypertension. 3. Obstructive sleep apnea with CPAP use. PAST SURGICAL HISTORY: 1. Bilateral knee surgeries. 2. Elbow surgery. 3. Left rotator cuff repair. 4. Lipoma removed from back. 5. Carpal tunnel surgery. HOME MEDICATIONS: Include: 1. Metoprolol 50 mg p.o. b.i.d. 2. Lisinopril/hydrochlorothiazide 40/25 daily. 3. Aspirin. 4. Nexium. ALLERGIES: No known drug allergies. FAMILY HISTORY: No reported history of coronary artery disease, diabetes, or cancer. SOCIAL HISTORY: The patient reports he smokes approximately 4 cigarettes daily for the past 38 years. He does report drinking 2 drinks of alcohol weekly. Denies any illicit drug use. 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 He is . Surrogate decision maker in the event he is unable to make his own decisions is his . He is a full code. REVIEW OF SYSTEMS: He denies any fever, unintended weight loss. Denies chest pain, edema, cough, hemoptysis or shortness of breath. He does report nausea. Denies any diarrhea. Does report some lower abdominal pain. He denies hematuria or dysuria. He does report frequency and large amounts of urination. Denies weakness or sensory loss. Does report blurred vision and feeling off balance x2 weeks. Denies any dysphagia, arthralgias, myalgias. He does report bilateral feet with red rash that he has had chronically for several years. Denies any psychosis or anxiety. PHYSICAL EXAMINATION GENERAL: At this time, Mr. Brito is a 57-year-old male. He is resting comfortably on the stretcher in the emergency room. His face is flushed. He does not appear to be in any acute distress. He is alert and oriented x3. HEENT: Head is atraumatic, normocephalic. Eyes: EOMs are intact. Sclerae anicteric and not pale. Oral mucosa appeared to be moist. NECK: Supple. LUNGS: Clear to auscultation bilaterally. No wheezes, rales, or rhonchi. CARDIAC: S1, S2. Regular rate and rhythm. No murmurs, rubs, or gallops. ABDOMEN: Soft and nontender. Bowel sounds are present x4. EXTREMITIES: Pedal pulses are +2 bilaterally. He is able to move all 4 extremities with 5/5 strength. NEUROLOGIC: He is awake, alert, and oriented x3. Speech is clear. Thought process is intact. No gross neuro deficits are noted. SKIN: He does have rashes in the bilateral folds of bilateral feet that is red and scaly. His skin color is flushed. DIAGNOSTIC STUDIES AND LABORATORY DATA: WBCs are 7.8, RBCs 5.59, hemoglobin 17.6, hematocrit was 50, platelet count was 223. INR was 0.91. Sodium was 125 , potassium was unable to calculate, chloride was 88, carbon dioxide was 26, anion gap of 11, BUN was 22, creatinine 1.17. Blood glucose was 840. Hemoglobin A1c was 11. Lactic acid was 2.1. Calcium 9.8, magnesium unable to calculate. ALTs were 42. Alkaline phosphatase was 111. CK was 185, CK-MB was 6.4, troponin was negative at 0.01 x2. BNP was 20, TSH was 1.25. Repeat potassium at 2010 was 3.3 and repeat blood sugar was 211. He had a chest x-ray. Radiologist's impression: No active cardiopulmonary disease. He had an electrocardiogram, which showed sinus rhythm at a rate of 86. No ST changes. ASSESSMENT AND PLAN: Mr. Brito is a 57-year-old male with a past medical history significant for hypertension and gastroesophageal reflux disease, obstructive sleep apnea, who presented to the emergency room with chest pain and found to be hyperglycemic with a blood sugar of 840. He will be admitted to the ICU inpatient for hyperglycemia. 1. Hyperglycemia. The patient was placed on an insulin drip. He did receive 10 units bolus of regular insulin in the emergency department. He also received 2 L of normal saline. He was started on normal saline at 125 cc an hour. His anion gap is 11. We will continue with his insulin drip and monitor his blood sugars q.1 hour. He will be placed in the ICU and we will titrate his insulin drip as needed for blood sugar control. I have also consulted Dr. Murray from Endocrinology, who will see the patient in the morning. He has recommended that we start the patient on D5 normal saline with 20 of K at 125 cc an hour. We will repeat a triglyceride level q.8 hours. We will repeat a BMP q.4 hours and a CBC in the a.m. 2. Chest pain. The patient does report chest pain with exertional chest pain. The patient has a GABINO score of 2 with aspirin use in the last 7 days and 2 episodes of chest pain giving him an 8% at 14-day cause of mortality of new or recurrent [place] or severe recurrent ischemia requiring urgent revascularization. Patient did take 81 mg of aspirin today. He is also currently on a beta-rajwinder , metoprolol at 50 mg p.o. b.i.d. We will continue to trend his troponins. His troponin is negative right now. We will repeat an EKG in the a.m. Patient does report he had a negative stress test in February. Given his exertional chest pain, the patient may require further cardiac workup. This should be reevaluated after the patient's blood sugars are under control. 3. Hypertension. He should continue on metoprolol as previously prescribed. 4. Gastroesophageal reflux disease. We will place him on omeprazole while in the hospital. 5. Obstructive sleep apnea. He should continue the use of his CPAP at night. 6. Hypokalemia. He currently has D5 normal saline with 20 K running and we will give him an extra dose of potassium 40 mEq p.o. and repeat a BMP in 4 hours. We will continue to monitor his potassium level and replace as needed. 7. Diet. He can have a consistent carb diet. 8. Code status. He is a full code. 9. DVT prophylaxis. I will place him on Lovenox 40 mg subcu. TIME SPENT: Time spent on this admission was 60 minutes, greater than half the time was spent [id number] with the patient obtaining my history and physical; the other half of the time was spent in going over my plan of care and implementing my plan of care. I have discussed this with my attending, ____ __; she is in agreement with my plan. JANET MELARA, MIMEOGRAPHER [id number]/[facility] #: [id number] VITALIY
[2018-07-23] MEDS: Insulin IVPB 100 units/100 ml 100 UNITS/100 ML UNIT IVPB ONE (02:08)
[2018-07-23] MEDS: D5W 1/2 NS KCl 20 Meq 1000 ML* 1,000 ML IV SCH (04:25)
[2018-07-23 04:31] LABS: ABS Basophils 0.1 10^3/ul (0-0.2); ABS Eosinophils 0.1 10^3/ul (0-0.6); ABS Lymphocytes 2.5 10^3/ul (1.0-4.8); ABS Monocytes 0.6 10^3/ul (0-0.8); ABS Neutrophils 3.8 10^3/ul (1.5-7.7); ABS Nucleated RBC 0 10^3/ul; Eosinophil % 1.1 %; Hematocrit 44 % (42-52); Hemoglobin 15.3 g/dl (14.0-18.0); Lymphocyte % 35.6 %; Mean Corpuscular HGB Conc 35 g/dl (31-36); Mean Corpuscular Hemoglobin 31 pg (27-31); Mean Corpuscular Volume 87 fL (80-94); Mean Platelet Volume 8.1 fL (7.4-10.4); Nucleated Red Blood Cells % 0.1; Platelet Count 189 10^3/ul (150-450); Red Blood Count 5.02 10^6/ul (4.00-5.40); Red Cell Distribution Width 13 % (10.5-15)
[2018-07-23 04:46] LABS: BUN/Creatinine Ratio 20.5 (8-20); Calcium 8.8 mg/dL (8.6-10.3); EGFR Non-African American 111.1 (>60); HDL Cholesterol 15.6 mg/dL; Potassium 3.5 mmol/L (3.5-5.0)
[2018-07-23] MEDS ORDERED: Dextrose 50% Syringe 50 ML* 25 GM/50 ML SYRINGE IV PUSH PRN ×3 (04:53→20:38)
[2018-07-23] MEDS ORDERED: KCL 20 MEQ/100 ML IVPREMIX* 20 MEQ/100 ML BAG IV ONE (04:55)
[2018-07-23] MEDS ORDERED: Insulin REGULAR(*) Infusion Protocol (IIP), non-DKA Adult Hyperglycemia (2017) IVPB SCH ×2 (05:00→15:00)
[2018-07-23] MEDS: Metoprolol Tartrate TAB* 50 mg PO SCH ×2 (08:40→22:34)
[2018-07-23] MEDS: Aspirin EC TAB* 81 MG TAB.EC PO SCH (08:40)
[2018-07-23 09:01] LABS: BUN/Creatinine Ratio 21.9 (8-20); Calcium 8.2 mg/dL (8.6-10.3); EGFR Non-African American 129.4 (>60); Potassium 3.7 mmol/L (3.5-5.0)
--- NOTE | 2018-07-23 09:47 | CONSULT ---
Consult Consult: [facility] Inpatient Consult Note Date of Consult: 07/22/18 Reason for Consult: new-onset diabetes Reason for Admission: hyperosmolar hyperglycemic state ASSESSMENT: 57 yo M with HHS most likely acute presentation of T2DM exacerbated by diet, accompanied by hypertriglyceridemia, but without acute coronary syndrome or pancreatitis. His hyperglycemia has improved with use of high-dose IV insulin >150 units/24H and his triglycerides. I recommend that he be started on basal insulin at 0.2 units/kg/day = 20-30 units/day glargine, as below. I doubt he will need prandial insulin in the future, although oral medications will be helpful. PLAN: - d/c dextrose IVF - check triglycerides Q6H - continue IV insulin until triglycerides are <800 - when ready for transition from IV to SQ insulin: - insulin glargine 30 units, stop IV insulin 2h later - start sliding scale insulin lispro with meals - continue glucose checks Q1H for 2H after IV insulin is stopped - change diet to clear liquids, then ADAT when off IV insulin - nursing staff to teach insulin injections and fingerstick BG monitoring - start metformin ER 750mg once daily at discharge - start glipizide XL 5mg once daily at discharge - RTC with endocrine in 2-3 weeks SUBJECTIVE: History of Present Illness: 57 yo M with history of hypertension and GERD who presented to [facility] with chest pain and polyuria/polydipsia of several weeks duration. He was [place] [facility] 4 [place] ago, when he noticed a significant increase in thirst and water consumption. He was unable to feel sated despite >1 gallon of fluids/day. He recently travelled to [place] for the holidays and noticed blurry vision. When he return home last week, he started drinking sugar-sweetened beverages, which exacerbated the polyuria/ polydipsia. [facility] He also sees Dr. Kirby for non-obstructive CAD. He has been told that his lipids and glucose have been in a healthy range in the past. A CT chest in April 2018 was normal except for fatty infiltratation of the liver; the visualized portions of the pancreas were normal. Past Medical History: 1. Hypertension 2. GERD 3. Non-obsutrictive CAD Medications Prior to Admission: Aspirin EC TAB* [Ecotrin EC Low Dose 81 MG*] 81 mg PO DAILY 07/22/18 [History Confirmed 07/22/18] Esomeprazole(NF) [NexIUM(NF)] 40 mg PO BID 07/22/18 [History Confirmed 07/22/18] Lisinopril/HCTZ (NF) [Zestoretic (NF)] 1 tab PO BID 07/22/18 [History Confirmed 07/22/18] Metoprolol Tartrate TAB* [Lopressor TAB*] 50 mg PO BID 07/22/18 [History Confirmed 07/22/18] Inpatient Medications: Acetaminophen (Tylenol Tab*) 650 mg PO Q4H PRN PRN Reason: FEVER/PAIN Aspirin (Aspirin Ec Tab*) 81 mg PO DAILY [facility] Last Admin: 07/23/18 08:40 Dose: 81 mg Dextrose (D50w Syringe 50 Ml*) 25 gm IV PUSH .SEE PROTOCOL PRN PRN Reason: BG<50 Dextrose (D50w Syringe 50 Ml*) 12.5 gm IV PUSH .SEE PROTOCOL PRN PRN Reason: BG 50-74 Enoxaparin Sodium (Lovenox(*)) 40 mg SUBCUT 2100 [facility] Last Admin: 07/22/18 22:10 Dose: 40 mg Potassium Chloride/Dextrose (D5w 1/2 Ns Kcl 20 Meq 1000 Ml*) 1,000 mls @ 125 mls/hr IV PER RATE [facility] Last Admin: 07/23/18 04:25 Dose: 125 mls/hr Insulin Human Regular (Insulin Regular Iv Drip 1 Unit/Ml) 100 units in 100 mls @ 0 mls/hr IVPB PER RATE [facility]; Protocol Metoprolol Tartrate (Lopressor Tab*) 50 mg PO BID [facility] Last Admin: 07/23/18 08:40 Dose: 50 mg Allergies/Intolerances: NKDA Social History: Lives with . Works in [employer] industry. Denies alcohol or drug use. Family History: Non-contributory. Review of Systems: As above. No recent illness. 12 system review is otherwise normal. OBJECTIVE: Temp Pulse Resp BP Pulse Ox 97.5 F 62 23 121/75 94 07/23/18 07:56 07/23/18 09:00 07/23/18 09:00 07/23/18 09:00 07/23/18 09:00 General: alert, pleasant, oriented, no distress ENT: neck supple, no thyromegaly, no bruit is heard Chest: CTAB, no wheezing or crackles CV: RRR, no murmur Abdomen: soft, non-tender Extremities: no edema, distal pulses intact Skin: warm, dry, no rash Neuro: grossly intact motor/sensory in extremities Psych: restricted affect, pleasant Labs: WBC 7.0 10^3/ul (3.5-10.8) 07/23/18 04:15 RBC 5.02 10^6/ul (4.00-5.40) 07/23/18 04:15 Hgb 15.3 g/dl (14.0-18.0) 07/23/18 04:15 Hct 44 % (42-52) 07/23/18 04:15 MCV 87 fL (80-94) 07/23/18 04:15 MCH 31 pg (27-31) 07/23/18 04:15 MCHC 35 g/dl (31-36) 07/23/18 04:15 RDW 13 % (10.5-15) 07/23/18 04:15 Plt Count 189 10^3/ul (150-450) 07/23/18 04:15 MPV 8.1 fL (7.4-10.4) 07/23/18 04:15 Neut % (Auto) 54.1 % 07/23/18 04:15 Lymph % (Auto) 35.6 % 07/23/18 04:15 [place] % (Auto) 8.4 % 07/23/18 04:15 Eos % (Auto) 1.1 % 07/23/18 04:15 Baso % (Auto) 0.8 % 07/23/18 04:15 Absolute Neuts (auto) 3.8 10^3/ul (1.5-7.7) 07/23/18 04:15 Absolute Lymphs (auto) 2.5 10^3/ul (1.0-4.8) 07/23/18 04:15 Absolute Monos (auto) 0.6 10^3/ul (0-0.8) 07/23/18 04:15 Absolute Eos (auto) 0.1 10^3/ul (0-0.6) 07/23/18 04:15 Absolute Basos (auto) 0.1 10^3/ul (0-0.2) 07/23/18 04:15 Absolute Nucleated RBC 0 10^3/ul 07/23/18 04:15 Nucleated RBC % 0.1 07/23/18 04:15 INR (Anticoag Therapy) 0.91 (0.77-1.02) 07/22/18 13:29 APTT 28.1 seconds (26.0-36.3) 07/22/18 13:29 Sodium 133 mmol/L (135-145) L 07/23/18 08:35 Potassium 3.7 mmol/L (3.5-5.0) 07/23/18 08:35 Chloride 102 mmol/L (101-111) 07/23/18 08:35 Carbon Dioxide 28 mmol/L (22-32) 07/23/18 08:35 Anion Gap 3 mmol/L (2-11) 07/23/18 08:35 BUN 14 mg/dL (6-24) 07/23/18 08:35 Creatinine 0.64 mg/dL (0.67-1.17) L 07/23/18 08:35 Est GFR ( Amer) 156.5 (>60) 07/23/18 08:35 Est GFR (Non-Af Amer) 129.4 (>60) 07/23/18 08:35 BUN/Creatinine Ratio 21.9 (8-20) H 07/23/18 08:35 Glucose 157 mg/dL (70-100) H 07/23/18 08:35 POC Glucose (mg/dL) 147 mg/dL (70-100) H 07/23/18 09:24 Hemoglobin A1c 11.0 % (4.0-5.6) H 07/22/18 13:29 Lactic Acid 2.1 mmol/L (0.5-2.0) H* 07/22/18 13:29 Calcium 8.2 mg/dL (8.6-10.3) L 07/23/18 08:35 Magnesium TNP 07/22/18 15:14 Total Bilirubin 0.80 mg/dL (0.2-1.0) 07/22/18 13:29 AST TNP 07/22/18 17:18 ALT 42 U/L (7-52) 07/22/18 13:29 Alkaline Phosphatase 111 U/L (34-104) H 07/22/18 13:29 Total Creatine Kinase 185 U/L (10-223) 07/22/18 13:29 CK-MB (CK-2) 6.4 ng/mL (0.6-6.3) H 07/22/18 13:29 Troponin I 0.01 ng/mL (<0.04) 07/22/18 20:10 B-Natriuretic Peptide 20 pg/mL (<=100) 07/22/18 13:29 Total Protein 7.0 g/dL (6.4-8.9) 07/22/18 13:29 Albumin 4.4 g/dL (3.2-5.2) 07/22/18 13:29 Globulin 2.6 g/dL (2-4) 07/22/18 13:29 Albumin/Globulin Ratio 1.7 (1-3) 07/22/18 13:29 Triglycerides 1151 mg/dL 07/23/18 04:15 Cholesterol 173 mg/dL 07/23/18 04:15 LDL Cholesterol mg/dL 07/23/18 04:15 LDL Cholesterol Direct 30 mg/dL 07/23/18 04:15 HDL Cholesterol 15.6 mg/dL 07/23/18 04:15 Amylase < 10 U/L (29-103) L 07/22/18 20:10 Lipase 53 U/L (11.0-82.0) 07/22/18 20:10 TSH 1.25 mcIU/mL (0.34-5.60) 07/22/18 13:29 Urine Color Straw 07/22/18 15:10 Urine Appearance Clear 07/22/18 15:10 Urine pH 6.0 (5-9) 07/22/18 15:10 Ur Specific [place] 1.026 (1.010-1.030) 07/22/18 15:10 Urine Protein Negative (Negative) 07/22/18 15:10 Urine Ketones Negative (Negative) 07/22/18 15:10 Urine Blood Negative (Negative) 07/22/18 15:10 Urine Nitrate Negative (Negative) 07/22/18 15:10 Urine Bilirubin Negative (Negative) 07/22/18 15:10 Urine Urobilinogen Negative (Negative) 07/22/18 15:10 Ur Leukocyte Esterase Negative (Negative) 07/22/18 15:10 Urine Glucose 3+(>=500 mg/dl) (Negative) A 07/22/18 15:10
--- NOTE | 2018-07-23 15:20 | ECHO ---
Patient: [facility] Rec#: [id number] : 1960 Date: 07/23/2018 Age: 57y Height: 180.34 cm / 71.0 in Weight: 131.54 kg / 289.9 lbs Sex: M BSA: 2.47 Room#: ICU 3 Admit Date#: 07/22/2018 Type: Inpatient Referring: Janet Melara Reading: Glenny Ndiaye MD Security Installation Technician: Yuliya Aguilar,WALLACECS,RDMS CC: Diamond Leslie MD Transthoracic Echocardiogram Indication: CP BP: 100/67 HR: 61 Rhythm: NSR Findings History: HTN, DM, MATEO, smoker Technical Comments: The study quality is fair. Left Ventricle: The left ventricular chamber size is normal. Mild concentric left ventricular hypertrophy is observed. There is normal left ventricular systolic function. The estimated ejection fraction is 55-60%. The assessment of diastolic function is non-diagnostic. Left Atrium: The left atrial chamber size is normal. Right Ventricle: The right ventricular chamber size and systolic function are within normal limits. Right Atrium: The right atrial cavity size is normal. Aortic Valve: The aortic valve is trileaflet. The aortic valve leaflets are mildly thickened. Systolic excursion of the aortic valve is normal. There is no evidence of aortic regurgitation. There is no evidence of aortic stenosis. Mitral Valve: The mitral valve leaflets appear normal. Mild mitral annular calcification present. There is no evidence of mitral regurgitation. There is no evidence of mitral stenosis. Tricuspid Valve: The tricuspid valve leaflets are normal. There is no evidence of tricuspid valve regurgitation. Unable to estimate the right ventricular systolic pressure. Pulmonic Valve: There is no evidence of pulmonic valve thickening. There is a trace pulmonic regurgitation. Pericardium: There is no significant pericardial effusion. Aorta: The aortic root appears normal. There is no dilatation of the aortic arch. Pulmonary Artery: The main pulmonary artery is not well visualized. Venous: The inferior vena cava is not visualized. Conclusions Mild concentric left ventricular hypertrophy is observed. There is normal left ventricular systolic function. The estimated ejection fraction is 55-60%. The right ventricular chamber size and systolic function are within normal limits. The aortic valve leaflets are mildly thickened. Mild mitral annular calcification present. Compared with prior echo of 02/28/17, no significant changes. Measurements Name Value Normal Range RVIDd (AP) 2D 3.1 cm (0.9 - 2.6) RVDdMajor (2D) 3.6 cm (2.2 - 4.4) RAd ISD 4CH 4.7 cm (3.4 - 4.9) RA (A4C)W 3.2 cm (2.9 - 4.6) IVSd (2D) 1.2 cm (0.6 - 1) LVPWd (2D) 1.4 cm (0.6 - 1) LVIDd (2D) 4.5 cm (3.6 - 5.4) LVIDs (2D) 3.4 cm - LV FS (2D) 25 % (25 - 45) Aortic Annulus 2.2 cm (1.4 - 2.6) Ao root diameter (2D) 2.8 cm (2.1 - 3.5) Ascending Ao 2.7 cm (2.1 - 3.4) Aortic arch 2.6 cm (1.8 - 3.4) LA dimension (AP) 2D 4.8 cm (2.3 - 3.8) LAd ISD 4CH 6.3 cm (2.9 - 5.3) LA ISD 4CH W 4.3 cm (2.5 - 4.5) Name Value Normal Range LA ESV SP 4CH (A/L) 48.32 ml - LA ESV SP 2CH (A/L) 56.34 ml - LA ESV BP (A/L) 53.76 ml - LA ESV BP (A/L) index 22 ml/m2 - LA ESV SP 4CH (MOD) 45.19 ml - LA ESV SP 2CH (MOD) 53.88 ml - Name Value Normal Range MV E-wave Vmax 0.9 m/sec - MV deceleration time 267 msec - MV A-wave Vmax 0.9 m/sec - MV E:A ratio 1 ratio - P. vein S-wave Vmax 0.4 m/sec - P. vein D-wave Vmax 0.4 m/sec - P. vein S:D Vmax ratio 1.1 ratio - P. vein A-wave duration 138 msec - LV septal e' Vmax 0.06 m/sec - LV lateral e' Vmax 0.08 m/sec - LV E:e' septal ratio 14 ratio - LV E:e' lateral ratio 12 ratio - Name Value Normal Range AV Vmax 1.5 m/sec - AV VTI 27 cm - AV peak gradient 9 mmHg - AV mean gradient 4.8 mmHg - LVOT Vmax 1.1 m/sec - LVOT VTI 23 cm - LVOT peak gradient 5 mmHg - LVOT mean gradient 2.9 mmHg - PAXTON Vmax 1.5 m/sec - Name Value Normal Range RAP 8 mmHg - Name Value Normal Range PV Vmax 0.8 m/sec - PV peak gradient 2.6 mmHg -
--- NOTE | 2018-07-23 17:34 | PN ---
Subjective Date of Service: 07/23/18 Interval History: Pt feels well. Had CP on day of admission that was similar th his GERD CP that he gets every a few months. Now CP free. noted blurry vision and polyuria approx 1 month ago Objective Active Medications: Acetaminophen (Tylenol Tab*) 650 mg PO Q4H PRN PRN Reason: FEVER/PAIN Aspirin (Aspirin Ec Tab*) 81 mg PO DAILY [facility] Last Admin: 07/23/18 08:40 Dose: 81 mg Dextrose (D50w Syringe 50 Ml*) 25 gm IV PUSH .SEE PROTOCOL PRN PRN Reason: BG<50 Dextrose (D50w Syringe 50 Ml*) 12.5 gm IV PUSH .SEE PROTOCOL PRN PRN Reason: BG 50-74 Enoxaparin Sodium (Lovenox(*)) 40 mg SUBCUT 2100 [facility] Last Admin: 07/22/18 22:10 Dose: 40 mg Insulin Human Regular (Insulin Regular Iv Drip 1 Unit/Ml) 100 units in 100 mls @ 0 mls/hr IVPB Q10H [facility]; Protocol Stop: 07/23/18 19:00 Last Admin: 07/23/18 15:30 Dose: 8.7 mls/hr Insulin Glargine (Lantus(*)) 30 units SUBCUT Q24H [facility] Metoprolol Tartrate (Lopressor Tab*) 50 mg PO BID [facility] Last Admin: 07/23/18 08:40 Dose: 50 mg Vital Signs - 8 hr 07/23/18 07/23/18 07/23/18 10:00 10:01 11:00 Temperature Pulse Rate 65 63 60 Respiratory 28 29 25 Rate Blood Pressure 124/73 129/77 (mmHg) O2 Sat by Pulse 95 95 95 Oximetry 07/23/18 07/23/18 07/23/18 12:00 13:00 13:01 Temperature 97.3 F Pulse Rate 63 63 64 Respiratory 23 19 18 Rate Blood Pressure 158/81 144/116 (mmHg) O2 Sat by Pulse 96 97 97 Oximetry 07/23/18 07/23/18 07/23/18 14:00 15:00 16:00 Temperature 98 F Pulse Rate 70 65 62 Respiratory 21 28 27 Rate Blood Pressure 126/95 141/88 (mmHg) O2 Sat by Pulse 97 96 97 Oximetry 07/23/18 07/23/18 16:01 17:00 Temperature Pulse Rate 62 58 Respiratory 22 20 Rate Blood Pressure 149/96 (mmHg) O2 Sat by Pulse 97 97 Oximetry Oxygen Devices in Use Now: None Appearance: 57 yo M in nAD, aAOx3 Eyes: No Scleral Icterus, PERRLA Ears/Nose/Mouth/Throat: NL Teeth, Lips, Gums, Mucous Membranes Moist Neck: NL Appearance and Movements; NL JVP, Trachea Midline Respiratory: Symmetrical Chest Expansion and Respiratory Effort, Clear to Auscultation Cardiovascular: NL Sounds; No Murmurs; No JVD, No Edema Abdominal: NL Sounds; No Tenderness; No Distention, No Hepatosplenomegaly Lymphatic: No Cervical Adenopathy, No Inguinal Adenopathy Extremities: No Edema Skin: No Rash or Ulcers, No Nodules or Sclerosis Neurological: Alert and Oriented x 3, NL Muscle Strength and Tone Result Diagrams: 07/23/18 04:15 07/23/18 08:35 Microbiology and Other Data: Microbiology 07/22/18 20:15 Nasal Screen MRSA (PCR) - Final Nasal Mrsa Not Detected Assess/Plan/Problems-Billing Assessment: 57 yo m with HTN, MATEO presents with CP and was found to have BG>800 - Patient Problems (1) Hyperglycemia due to type 2 diabetes mellitus Comment: likely due to DM2. Appreciate Dr. Du recommendations. Triglycerides are 1000 this PM. will d/c insulin gtt tonight and start pt on Lantus 30 U. Also DM education and nutrition was started. (2) Hypertriglyceridemia Comment: a consequence of DM? Pt stated that he never had "cholesterol problems" before will start gemfibrozil (3) HTN (hypertension) Comment: controlled on metoprolol (4) MATEO (obstructive sleep apnea) Comment: continue cpap at night (5) Chest pain Comment: with some typical and some atypical features. ACS ruled out with 3x normal troponin. stress test neg 11/2017 . echo with EF 55%, unchanged from 2017 No further w/up indicated (6) DVT prophylaxis Comment: lovenox Status and Disposition: OBV
[2018-07-23] MEDS ORDERED: Insulin GLARGINE(*) 1 UNITS UNIT SUBCUT SCH (18:00)
[2018-07-23] MEDS ORDERED: Insulin LISPRO* 1 UNITS UNIT SUBCUT SCH (21:00)
[2018-07-23] MEDS: Insulin LISPRO* 1 UNITS UNIT SUBCUT SCH (22:17)
[2018-07-23] MEDS: Enoxaparin(*) 40 MG/0.4 ML SYR SUBCUT SCH (22:19)
[2018-07-23] MEDS: Gemfibrozil TAB* 600 MG PO SCH (22:32)
[2018-07-24] MEDS: Insulin LISPRO* 1 UNITS UNIT SUBCUT SCH ×3 (02:14→10:39)
[2018-07-24 07:40] LABS: BUN/Creatinine Ratio 21.2 (8-20); Calcium 8.7 mg/dL (8.6-10.3); EGFR Non-African American 124.9 (>60); Magnesium 1.8 mg/dL (1.9-2.7)
[2018-07-24] MEDS: Aspirin EC TAB* 81 MG TAB.EC PO SCH (08:19)
[2018-07-24] MEDS: Gemfibrozil TAB* 600 MG PO SCH (08:19)
[2018-07-24] MEDS: Metoprolol Tartrate TAB* 50 mg PO SCH (08:20)
[2018-07-24] MEDS: Pantoprazole TAB * 40 MG TAB PO SCH ×2 (08:20→08:25)
[2018-07-24] MEDS ORDERED: Insulin LISPRO* 1 UNITS UNIT SUBCUT ONE (08:23)
--- NOTE | 2018-07-24 08:30 | PN ---
Progress Note - Progress Note Date of Service: 07/24/18 Note: [facility] Inpatient Progress Note Reason for Admission: hyperosmolar hyperglycemic state ASSESSMENT: 57 yo M with cute presentation of T2DM exacerbated by diet, accompanied by hypertriglyceridemia. Glucose improved with high-dose IV insulin , but patient experienced significant post-prandial hyperglycemia after eating regular diet last night. He received a total of 60 units of long+short-acting insulin in the past 12 hours, but still BG>250. I recommend trial of prandial insulin with breakfast today -- will consider need for prandial insulin at discharge based on his response to insulin this AM. Triglycerides have improved. PLAN: - likely discharge today - increase glargine to 45 units once daily - start lispro 10 units TID-AC (one time dose ordered) - change lispro sliding scale to TID-AC - start metformin ER 750mg once daily at discharge - start glipizide XL 5mg once daily at discharge - RTC with endocrine in 2 weeks SUBJECTIVE: Feeling well. No complaints. Slept well with CPAP. Needed 30 units of correction insulin, in addition to 30 units basal insulin given last night. Temp Pulse Resp BP Pulse Ox 97.6 F 65 16 151/92 99 07/24/18 07:15 07/24/18 07:15 07/24/18 07:15 07/24/18 07:15 07/24/18 07:15 WBC 7.0 10^3/ul (3.5-10.8) 07/23/18 04:15 RBC 5.02 10^6/ul (4.00-5.40) 07/23/18 04:15 Hgb 15.3 g/dl (14.0-18.0) 07/23/18 04:15 Hct 44 % (42-52) 07/23/18 04:15 MCV 87 fL (80-94) 07/23/18 04:15 MCH 31 pg (27-31) 07/23/18 04:15 MCHC 35 g/dl (31-36) 07/23/18 04:15 RDW 13 % (10.5-15) 07/23/18 04:15 Plt Count 189 10^3/ul (150-450) 07/23/18 04:15 MPV 8.1 fL (7.4-10.4) 07/23/18 04:15 Neut % (Auto) 54.1 % 07/23/18 04:15 Lymph % (Auto) 35.6 % 07/23/18 04:15 [place] % (Auto) 8.4 % 07/23/18 04:15 Eos % (Auto) 1.1 % 07/23/18 04:15 Baso % (Auto) 0.8 % 07/23/18 04:15 Absolute Neuts (auto) 3.8 10^3/ul (1.5-7.7) 07/23/18 04:15 Absolute Lymphs (auto) 2.5 10^3/ul (1.0-4.8) 07/23/18 04:15 Absolute Monos (auto) 0.6 10^3/ul (0-0.8) 07/23/18 04:15 Absolute Eos (auto) 0.1 10^3/ul (0-0.6) 07/23/18 04:15 Absolute Basos (auto) 0.1 10^3/ul (0-0.2) 07/23/18 04:15 Absolute Nucleated RBC 0 10^3/ul 07/23/18 04:15 Nucleated RBC % 0.1 07/23/18 04:15 INR (Anticoag Therapy) 0.91 (0.77-1.02) 07/22/18 13:29 APTT 28.1 seconds (26.0-36.3) 07/22/18 13:29 Sodium 133 mmol/L (135-145) L 07/24/18 07:08 Potassium 4.0 mmol/L (3.5-5.0) 07/24/18 07:08 Chloride 103 mmol/L (101-111) 07/24/18 07:08 Carbon Dioxide 24 mmol/L (22-32) 07/24/18 07:08 Anion Gap 6 mmol/L (2-11) 07/24/18 07:08 BUN 14 mg/dL (6-24) 07/24/18 07:08 Creatinine 0.66 mg/dL (0.67-1.17) L 07/24/18 07:08 Est GFR ( Amer) 151.1 (>60) 07/24/18 07:08 Est GFR (Non-Af Amer) 124.9 (>60) 07/24/18 07:08 BUN/Creatinine Ratio 21.2 (8-20) H 07/24/18 07:08 Glucose 254 mg/dL (70-100) H 07/24/18 07:08 POC Glucose (mg/dL) 242 mg/dL (70-100) H 07/24/18 06:19 Hemoglobin A1c 11.0 % (4.0-5.6) H 07/22/18 13:29 Lactic Acid 2.1 mmol/L (0.5-2.0) H* 07/22/18 13:29 Calcium 8.7 mg/dL (8.6-10.3) 07/24/18 07:08 Magnesium 1.8 mg/dL (1.9-2.7) L 07/24/18 07:08 Total Bilirubin 0.80 mg/dL (0.2-1.0) 07/22/18 13:29 AST TNP 07/22/18 17:18 ALT 42 U/L (7-52) 07/22/18 13:29 Alkaline Phosphatase 111 U/L (34-104) H 07/22/18 13:29 Total Creatine Kinase 185 U/L (10-223) 07/22/18 13:29 CK-MB (CK-2) 6.4 ng/mL (0.6-6.3) H 07/22/18 13:29 Troponin I 0.01 ng/mL (<0.04) 07/22/18 20:10 B-Natriuretic Peptide 20 pg/mL (<=100) 07/22/18 13:29 Total Protein 7.0 g/dL (6.4-8.9) 07/22/18 13:29 Albumin 4.4 g/dL (3.2-5.2) 07/22/18 13:29 Globulin 2.6 g/dL (2-4) 07/22/18 13:29 Albumin/Globulin Ratio 1.7 (1-3) 07/22/18 13:29 Triglycerides 906 mg/dL 07/24/18 07:08 Cholesterol 173 mg/dL 07/23/18 04:15 LDL Cholesterol mg/dL 07/23/18 04:15 LDL Cholesterol Direct 30 mg/dL 07/23/18 04:15 HDL Cholesterol 15.6 mg/dL 07/23/18 04:15 Amylase < 10 U/L (29-103) L 07/22/18 20:10 Lipase 53 U/L (11.0-82.0) 07/22/18 20:10 TSH 1.25 mcIU/mL (0.34-5.60) 07/22/18 13:29 Urine Color Straw 07/22/18 15:10 Urine Appearance Clear 07/22/18 15:10 Urine pH 6.0 (5-9) 07/22/18 15:10 Ur Specific [place] 1.026 (1.010-1.030) 07/22/18 15:10 Urine Protein Negative (Negative) 07/22/18 15:10 Urine Ketones Negative (Negative) 07/22/18 15:10 Urine Blood Negative (Negative) 07/22/18 15:10 Urine Nitrate Negative (Negative) 07/22/18 15:10 Urine Bilirubin Negative (Negative) 07/22/18 15:10 Urine Urobilinogen Negative (Negative) 07/22/18 15:10 Ur Leukocyte Esterase Negative (Negative) 07/22/18 15:10 Urine Glucose 3+(>=500 mg/dl) (Negative) A 07/22/18 15:10
[2018-07-24] MEDS ORDERED: Hydrochlorothiazide TAB* 25 MG PO SCH (09:00)
[2018-07-24] MEDS ORDERED: Lisinopril TAB* 10 MG PO SCH (09:00)
[2018-07-24] MEDS ORDERED: glipiZIDE TAB.XL* 5 MG PO SCH (11:00)
[2018-07-24] MEDS ORDERED: Insulin GLARGINE(*) 1 UNITS UNIT SUBCUT SCH (11:00)
[2018-07-24] MEDS ORDERED: Dextrose 50% Syringe 50 ML* 25 GM/50 ML SYRINGE IV PUSH PRN (12:45)
[2018-07-24] MEDS ORDERED: Insulin LISPRO* 1 UNITS UNIT SUBCUT SCH (14:00)
[2018-07-24 16:28] VITALS: BP 127/72
--- NOTE | 2018-07-24 22:39 | DS ---
CC: Dr. Smith; Dr. Leslie; Dr. Amilcar Murray * DISCHARGE SUMMARY: DATE OF ADMISSION: 07/22/18 DATE OF DISCHARGE: 07/24/18 PRIMARY CARE PROVIDER: Dr. Smith ENDOCRINOLOGY: Dr. Amilcar Murray. DISPOSITION: The patient is being discharged to home. DISCHARGE DIAGNOSES: 1. Extreme hyperglycemia due to new diagnosis of likely diabetes type 2. 2. Hypertriglyceridemia, likely a consequence of hyperglycemia. SECONDARY DIAGNOSES: 1. History of hypertension. 2. History of obstructive sleep apnea, on CPAP. 3. History of chest pain with negative cardiac workup in November 2017. MEDICATIONS AT DISCHARGE: Include: 1. Metformin ER 750 mg p.o. daily. 2. Insulin Lispro in pens 10 units before each meals three times a day. 3. Insulin glargine 45 units subcutaneously daily in p.m. 4. Glucotrol XL 5 mg daily. 5. Metoprolol tartrate 50 mg b.i.d. 6. Lisinopril/hydrochlorothiazide 20/25 mg one tablet b.i.d. 7. Nexium 40 mg b.i.d. 8. Aspirin 81 mg daily. 9. TriCor 48 mg daily. LABORATORY DATA AND STUDIES PERFORMED DURING THE HOSPITAL STAY: Included: On 07/15/18, white blood cell count 7.0, hemoglobin of 15.3, hematocrit of 44, and platelets of 189. Sodium of 133, potassium of 4.0, chloride 103, carbon dioxide 24, BUN 14, creatinine 0.66. Glucose on 07/24/18 in the morning was 254 , prior to patient's discharge was 169. Hemoglobin A1c was noted to be 11.0. Triglycerides at admission was 1917. On the day of discharge in the morning was 906. Transthoracic echocardiogram obtained on 07/23/18 showed EF of 55% to 60% with normal left ventricular systolic function and mild concentric LVH. The aortic valve leaflets were mildly thickened. There was mild mitral annulus calcification present and no significant changes comparing with echo from February 2017. Portable chest x-ray obtained on admission showed no active cardiopulmonary disease. CONSULTATIONS DURING THE HOSPITAL STAY: Included Dr. Amilcar Murray from Endocrinology. HOSPITALIZATION COURSE: Tim Brito is a 57-year-old male with history of hypertension and problems with recurrent chest pains. The patient stated that the chest pains occur approximately every 3 to 4 months. Due to the chest pain , he had 2 stress tests documented in 2018, one was in August 2017 and the another one in November 2017, both of them were negative. He is under the care of Dr. Leslie. The patient stated that he has been having problems with feeling unwell overall , occasional blurry vision for the past month or so. He stated that he felt like he wanted to lose weight and due to that, he drank a lot of juice. On 03/02, he developed chest pain again. He stated that it was similar to what he had in the past, localize substernally but it would not go away after drinking water, which usually was the treatment that he used in the past for that. Due to that, he went to Dr. Leslie's office as a walk-in. The office staff recommended for the patient to come into the ED for evaluation. At that point, it was noted that his troponin's were unremarkable. His pain resolved but unfortunately, the patient's glucose level was noted to be 840. The patient also had at that point pseudohyponatremia with sodium level of 125. His renal function showed mildly increased creatinine on admission at 1.17. Patient's triglycerides were also elevated as mentioned above. The patient was admitted to the hospital, placed on insulin drip. Dr. Murray saw patient in consultation the very next day and recommended continuation of the drip until triglycerides are lower. Patient's triglycerides were around 1000 range on the night on 07/23 when the patient's insulin drip was stopped and the patient was placed on long acting insulin. Throughout his hospital stay, patient was started on gemfibrozil for his hypertriglyceridemia. Luckily enough, he did not have pancreatitis or any other hypertriglyceridemia-related problems. In regards to patient's diabetes management, Dr. Murray recommended for the patient to be on glargine at 45 units daily and was also recommended for the patient to be placed on glipizide and metformin at the time of discharge. Despite that, after breakfast in the morning on 07/24/18, patient's sugar was still in the 300 range. At that point, the recommendation was to place the patient initially on 50 units of insulin 3 times a day with each meal but by the time of discharge after lunch, patient's sugars were down to 150s. At that point, we decided with the patient that due to that, that he is going to be on sulfonylurea as well as metformin in addition to the current coverage. It is safer for the patient to be on 10 units three times a day with each meal. During the hospital stay, patient saw a farm equipment service technician in regards to diabetic diet. He was taught multiple times how to inject insulin and how to perform fingersticks. He is going to be discharged home. Recommendation to follow up with Dr. Smith in approximately 4 to [address] Murray would like to see patient in his office in approximately 2 weeks. In regards to the patient's chest pain, that did not recur throughout the hospital stay. In the past, it was related to gastroesophageal reflux disease. Patient's troponin were negative throughout the hospital stay and his echocardiogram was unchanged from prior. At this point, there were no indications for further evaluation with stress test. In addition to that, patient thought that due to his treatment for his diabetes and triglyceridemia, it will be better to follow up with Dr. Leslie as outpatient in regards of stress test later on in the year. PHYSICAL EXAMINATION: At the time of discharge, blood pressure of 127/72, heart rate of 62 and regular, respiratory rate 19, oxygen saturation 97% on room air, temperature 98.1. General: The patient is a very pleasant 57-year- old male whose BMI is 39. The patient is in no acute distress. Alert, awake and oriented x3. HEENT: Head: Atraumatic, normocephalic. Eyes: Pupils are equal, reactive to light and accommodation. Oropharynx is clear. Mucosa moist. Neck: Supple. No JVD. No bruits bilaterally. Cardiovascular: Regular rate and rhythm. No murmur. Respiratory: Clear to auscultation bilaterally. Abdomen: Soft, nontender. Bowel sounds are present in all 4 quadrants. Extremities: There is no edema. Pulses are +2 bilaterally. There is no clubbing or cyanosis. On neuro evaluation, speech clear. Cranial nerves II through XII are grossly intact. Motor strength is 5/5 bilaterally. Please note that this is a short summary of the patient's hospital stay. Please refer to further medical records for details. TIME SPENT: Approximately 45 minutes was spent in preparation of patient's discharge. [id number] #: [id number] [facility]
== END 2018-07-24 17:55 | disposition home or self-care (01) ==
LOC: ED 13:44 → ICU 18:20 → INTOOBSV 18:20 → MED 07-23 21:53
PROVIDERS: ADMIT Internal Medicine; ATTEND Internal Medicine
DX: E11.65 Type 2 diabetes mellitus with hyperglycemia (principal); I10 Essential (primary) hypertension; G47.33 Obstructive sleep apnea (adult) (pediatric); R07.9 Chest pain, unspecified; Z79.82 Long term (current) use of aspirin
CPT/HCPCS: 36415; 71045; 80048; 80053; 80061; 81003; 82150; 82550; 82553; 82947; 83036; 83605; 83690; 83721; 83735; 83880; 84443; 84478; 84484; 85025; 85610; 85730; 87641; 93005; 93306; 94660; 96361; 96372; 99285; A9270-GY; G0378; J1650; J1815; J3480